=== PATIENT | male | born 1975 | race Caucasian/White ===

== ENCOUNTER 2025-09-06 01:31 | Emergency (ER) | payer BC, SELFPAY ==
--- NOTE | 2025-09-06 01:36 | ED_ITS ---
HPI - Extremity Injury (Lower) General Chief Complaint: Extremity Injury, Lower Stated Complaint: R Leg Injury Time Seen by Provider: 09/06/25 01:36 History of Present Illness HPI Narrative: 50-year-old male without any pertinent past medical history comes into the ED from home for evaluation of right lower leg pain, he states that he tripped outside landed on his knees, he states that he felt/saw a pop to his right leg, was unable to stand bear weight on that leg and came immediately to the emergency department. He states that he did scrape his left leg but is not having any pain discomfort to that leg, not up-to-date on tetanus. He denies head strike denies blood thinners, denies any other injuries or complaints at this time. He does however state that he did have some alcohol earlier today prior to arrival. Related Data Previous Rx's ?Medication ?Instructions ?Recorded ondansetron 4 mg disintegrating 4 mg PO Q8H PRN nausea and 09/06/25 tablet vomiting 5 days #15 tabs oxycodone-acetaminophen 5 mg-325 1 tab PO Q8H PRN pain 3 days #9 09/06/25 mg tablet (Percocet) tabs Allergies Allergy/AdvReac Type Severity Reaction Status Date / Time No Known Drug Allergies Allergy Verified 09/06/25 01:43 Review of Systems Review of Systems Narrative: General: Denies fever, chills, weight loss HEENT: Denies headache, eye drainage, eye irritation, head trauma, sore throat, voice change Cardiovascular: Denies any chest pain, palpitations, tachycardia Respiratory: Denies any shortness of breath, cough, wheeze, stridor GI/: Denies any abdominal pain, nausea, vomiting, diarrhea, bright red blood per rectum, melanotic stools, urinary frequency, urinary retention, dysuria, hematuria MSK: Positive right lower extremity pain Skin: Denies any rashes, lesions, discoloration Neuro: Denies any headache, lightheadedness, dizziness, fainting, weakness Psych: Denies SI/HI Exam Narrative Exam Narrative: General: Cooperative, well-developed, not in acute distress HEENT: Normocephalic, atraumatic, PERRLA, normal sclera, eyelids normal Neck: Active full range of motion, atraumatic Chest: Normal to inspection, negative crepitus, no overlying erythema ecchymosis Respiratory: Normal respiratory effort, not in acute respiratory distress, clear to auscultation bilaterally negative cough, wheeze, tachypnea, rhonchi, rales Cardiology: Regular rate rhythm negative gallop, murmur, rubs GI/: No tenderness to palpation, soft, non rigid, normal to inspection, exam deferred MSK: Patient with tenderness to palpation of the right lower extremity, he is neurovascularly intact otherwise, good dorsalis and posterior tibialis pulses. Patient does have small abrasion noted to the pinky toe of the left lower extremity otherwise no other deformities to the left lower extremity, he has no other tenderness to palpation of any bony prominences Skin: No rashes or lesions noted Neuro: Alert awake oriented x3, moves all 4 extremities spontaneously, cranial nerves intact, able to answer all questions appropriately follows commands appropriately Psych: Cooperative, negative suicidal or homicidal ideations Initial Vital Signs Initial Vital Signs: Vital Signs Temperature 98.1 F 09/06/25 01:43 Pulse Rate 79 09/06/25 01:43 Respiratory Rate 18 09/06/25 01:43 Blood Pressure 152/72 H 09/06/25 01:43 Pulse Oximetry 96 09/06/25 01:43 Oxygen Delivery Method Room Air 09/06/25 01:43 Procedures Orthopedic Splinting/Casting Injury #1: Time of procedure: 01:58 Side: right Lower Extremity Immobilizer: posterior splint and stirrup splint Other Orthopedic Equipment: crutches Post splinting neuro exam: intact Post splinting vascular exam: intact Placed by: Nursing Course Orders Ordered: ED Orders 09/06/25 01:39 XR ankle RT min 3V Stat XR tibia fibula RT 2V Stat CBC Auto Diff [Complete Blood Count AUTO DIFF] Stat CMP [Comprehensive Metabolic Panel] Stat PT [Prothrombin Time INR] Stat PTT Partial Thromboplastin Noah Stat Morphine Sulfate (Morphine 4 Mg/Ml Inj) 4 mg IV NOW ONE Stop: 09/06/25 01:57 Discontinued Medications Diphtheria/Tetanus/Acell Pertussis (Tet,Diph,Pertuss(Acell),Vac/Pf 0.5 Ml Syringe) 0.5 ml IM .ONCE ONE Stop: 09/06/25 01:42 Sodium Chloride (Normal Saline 0.9%) 1,000 mls @ 1,000 mls/hr IV BOLUS ONE Stop: 09/06/25 02:39 Morphine Sulfate (Morphine 4 Mg/Ml Inj) 4 mg IV NOW ONE Stop: 09/06/25 01:41 Ondansetron HCl (Ondansetron 4 Mg/2 Ml Inj) 4 mg IV NOW ONE Stop: 09/06/25 01:41 Vital Signs Vital signs: Vital Signs - 8 hr 09/06/25 01:43 Temperature 98.1 F Pulse Rate 79 Respiratory Rate 18 Blood Pressure 152/72 H Pulse Oximetry 96 Oxygen Delivery Method Room Air MDM - Extremity Injury (Lower) MDM Narrative Medical decision making narrative: 50-year-old male not up-to-date on tetanus comes into the ED from home for evaluation of right leg pain states that he had a mechanical trip and fall just prior to arrival states that he felt/heard a pop to his right lower extremity and states that he broke his leg, he was unable to stand bear weight and ambulate on that leg, he does endorse some alcohol prior to arrival but denies head strike states that he fell/slipped and landed onto his knees, he denies any other injuries, does have a small abrasion noted to the left pinky toe but no laceration no signs of lacerations or need for repair. He has tenderness to palpation of the right lower extremity but neurovascularly intact otherwise. X- ray did show distal fibular fracture, patient had posterior short splint with stirrup placed, patient will be given crutches and will be sent home with symptomatic relief and instructed follow up with Orthopedic surgery in outpatient setting. Discharge Plan Departure Patient Disposition: Home Clinical Impression: Fracture of distal end of fibula Instructions: How to Use Crutches, How to Take Care of Your Splint Activity Restrictions/Additional Instructions: Please follow up with Orthopedic surgery in outpatient setting Please read the discharge instructions sheet carefully and bring all papers to all doctor follow-up visits, as it may contain information that your doctor may want to see. Disease processes change and evolve, if your symptoms worsen or if you develop any new symptoms that are concerning to you please return for evaluation. Your evaluation today does not show any evidence of any life- threatening/serious illnesses requiring admission to the hospital or surgery. Please follow-up with your doctor for re-evaluation in approximately 1 day. Seek immediate medical attention for any worrisome symptoms. *If you do not have a primary care provider please contact the [facility] Resource line at [phone]. They will ask some questions about your medical history and help get you set up with a doctor in the community. Prescriptions: New oxycodone-acetaminophen [Percocet] 5-325 mg tablet 1 tab PO Q8H PRN (Reason: pain) 3 Days Qty: 9 0RF ondansetron 4 mg tablet,disintegrating 4 mg PO Q8H PRN (Reason: nausea and vomiting) 5 Days Qty: 15 0RF Referrals: Wilson Sr MD [Primary Care Provider, Medical] Stand Alone Forms: Patient Portal/API
--- NOTE | 2025-09-06 01:39 | DI.RAD.S_ITS ---
PROCEDURE: XR ANKLE RT MIN 3V INDICATIONS: pain s/p fall TECHNIQUE: 3 views of the ankle were acquired. COMPARISON: None. FINDINGS: Bones: Comminuted displaced oblique fracture of the distal fibular diaphysis above the level of the syndesmosis with approximately 1 shaft with posterior displacement of the distal fracture fragment and mild medial angulation. There is widening of the syndesmosis and medial clear space, suggestive of ligamentous injury. Soft tissues: No substantial tibiotalar joint effusion. Soft tissue swelling about the ankle. IMPRESSION: Comminuted displaced oblique fracture of the distal fibular diaphysis above the level of the syndesmosis as above. Widening of the syndesmosis and medial clear space. Dictated by: Tomas Mcgowan M.D. on 09/06/2025 at 2:20 Approved by: Tomas Mcgowan M.D. on 09/06/2025 at 2:24
--- NOTE | 2025-09-06 01:39 | DI.RAD.S_ITS ---
PROCEDURE: XR TIBIA FUBULA RT 2V INDICATIONS: pain s/p fall TECHNIQUE: 2 views of the tibia and fibula were acquired. COMPARISON: None. FINDINGS: See separately dictated ankle radiograph for description of distal fibular fracture and ankle finding. No additional acute bony abnormality is noted. IMPRESSION: See separately dictated ankle radiograph for description of distal fibular fracture and ankle finding. No additional acute bony abnormality is noted. Dictated by: Tomas Mcgowan M.D. on 09/06/2025 at 2:24 Approved by: Tomas Mcgowan M.D. on 09/06/2025 at 2:26
[2025-09-06 01:43] VITALS: BP 152/72; PULSE 79; RESP 18; TEMP 36.7; O2SAT 96; BMI 38.0
[2025-09-06] MEDS: MORPHINE 4 MG/ML INJ IV (01:58)
[2025-09-06] MEDS: ONDANSETRON 4 MG/2 ML INJ IV (01:59)
[2025-09-06] MEDS: TET,DIPH,PERTUSS(ACELL),VAC/PF 0.5 ML SYRINGE IM (02:25)
[2025-09-06 02:48] VITALS: BP 125/80; PULSE 65; RESP 18; O2SAT 95
== END 2025-09-06 02:54 | disposition home or self-care (01) ==
PROVIDERS: Emergency Provider Student in an Organized Health Care Education/Training Program; Family Provider Family Medicine; PCP Family Medicine
DX: S82.831A Other fracture of upper and lower end of right fibula, initial encounter for closed fracture (principal); Z23 Encounter for immunization; W01.10XA Fall on same level from slipping, tripping and stumbling with subsequent striking against unspecified object, initial encounter
CPT/HCPCS: 73590; 73610; 96372; 96374; 96375; 99284; 90715; J2272; J2405